=== PATIENT | male | born 2000 | race Caucasian/White ===

== ENCOUNTER 2025-03-29 11:57 | Emergency (ER) | payer MEDICAID ==
[~2025-03-29] VITALS: Ht 180.3 cm; Wt 76.5 kg
[2025-03-29 14:30] LABS: BASO # 0.1 10^3/uL (0.0-0.2); BASO % 1.4 % (0.0-1.0); EOS # 0.1 10^3/uL (0.0-0.5); EOS % 1.3 % (0.0-3.0); LYMPH # 1.8 10^3/uL (1.5-5.0); LYMPH % 21.8 % (24.0-44.0); MONO # 1.0 10^3/uL (0.0-0.8); MONO % 11.5 % (2.0-8.0); NEUTROPHILS # 5.4 10^3/uL (1.5-8.5); NEUTROPHILS % 63.8 % (36.0-66.0); PLATELET COUNT, AUTOMATED 271 10^3/uL (150-450)
[2025-03-29 14:47] LABS: ETHYL ALCOHOL (ETHANOL) < 0.003 % (0.000-0.010)
[2025-03-29 14:49] LABS: ALT/SGPT 27 U/L (7.0-40); AST/SGOT 24 U/L (<34); CALCIUM LEVEL 10.0 MG/DL (8.5-10.1); CARBON DIOXIDE LEVEL 27 MMOL/L (20-31); CHLORIDE LEVEL 106 MMOL/L (98-107); CREATININE FOR GFR 0.92 MG/DL (0.70-1.30); GLOMERULAR FILTRATION RATE > 90.0 (>60); MAGNESIUM LEVEL 1.8 MG/DL (1.8-2.4); POTASSIUM SERUM 4.6 MMOL/L (3.5-5.1); SODIUM LEVEL 142 MMOL/L (136-145)
[2025-03-29] MEDS ORDERED: HYDR-3363 PO (15:09)
[2025-03-29 15:18] VITALS: BP 127/91; TEMP 98.1; O2SAT 100
== END 2025-03-29 15:20 | disposition home or self-care (01) ==
LOC: M ED 11:57
DX: F10.139 Alcohol abuse with withdrawal, unspecified (principal); F41.9 Anxiety disorder, unspecified; F17.290 Nicotine dependence, other tobacco product, uncomplicated